=== PATIENT | male | born 1965 | race Caucasian/White ===

== ENCOUNTER → 2017-02-22 | Outpatient (CLI) | payer BC ==
[~2017-02-22] MED LIST: ASP81CT PO; ATOR10TA66 PO; CATHETER FLUSH 10 ML SYR IV PRN; FENO48TA16 PO; Famotidine PO; Isosorbide Mononitrate PO; LISI-552 PO; METO-272 PO; NAPR-689 PO; NITR0.4T SL; OMG1KC PO; Omega 3 Polyunsat Fatty Acids PO; PRAS10TA6 PO; PRAV10TA PO; Prasugrel Hydrochloride PO; ROSU10TA12 PO; TICA90TA PO
[2017-02-22 09:12] VITALS: BP 120/89
[2017-02-22 09:24] VITALS: BP 172/100
--- NOTE | 2017-02-22 22:16 | STRESS TEST ---
DATE OF SERVICE: 02/22/2017 EXERCISE MYOVIEW STRESS TEST REPORT Baseline heart rate is 59. Baseline blood pressure 136/88. Baseline EKG is sinus rhythm with no ischemic changes. In summary, the patient started exercising with a baseline heart rate, blood pressure and EKG mentioned above. At minute 7 and 30 seconds, the patient was injected with 30.7 mCi of technetium-99 Myoview. The patient was able to finish a total of 8 minutes 13 seconds on standard Alfredo protocol with peak exercise level EKG was showing nondiagnostic changes. Blood pressure at peak was 172/109. During recovery, heart rate and blood pressure returned to baseline. EKG returned to baseline. The resting and stress images were reviewed and compared in the short axis, horizontal long axis, and vertical long axis views. Review of the images showed diaphragmatic attenuation with decreased uptake involving the whole inferior wall with mild reversibility. SSS is 6. SDS 6. TID value 0.76. On the gated images, the left ventricle appeared to be normal size with normal contractility. Calculated ejection fraction 66%. CONCLUSION: 1. Fair exercise tolerance. A total of 8 minutes 13 seconds on standard Alfredo protocol, total of 9.9 METS achieving 89% of maximum expected heart rate. 2. Mild hypertensive response to exercise, returned to baseline during recovery. 3. Minimal nondiagnostic EKG changes with exercise, returned to baseline during recovery. 4. Diaphragmatic attenuation with mild reversible ischemia involving the whole inferior wall and inferolateral wall. 5. Normal left ventricular size with normal contractility. Calculated ejection fraction 66%. Job ID: [id number] DocumentID: [id number] Dictated Date: 02/22/2017 16:01:59 Hotel Breakfast Attendant Date: 02/22/2017 20:13:31 Dictated By: GERMÁN REYNOSO MD
== END ==
LOC: CARD 07:12
PROVIDERS: ATTEND Internal Medicine Cardiovascular Disease
DX: R94.31 Abnormal electrocardiogram [ECG] [EKG] (principal); I25.10 Atherosclerotic heart disease of native coronary artery without angina pectoris; R07.9 Chest pain, unspecified; I10 Essential (primary) hypertension; E78.2 Mixed hyperlipidemia; Z72.0 Tobacco use
CPT/HCPCS: 78452; 93017

== ENCOUNTER 2017-03-01 08:57 | Day surgery (SDC) | payer BC ==
[2017-03-01] VITALS (12 sets, daily range): BP systolic 117–157; BP diastolic 63–106
[~2017-03-01] VITALS: Ht 180.3 cm; Wt 108.9 kg
[~2017-03-01 08:57] MED LIST changes: -CATHETER FLUSH 10 ML SYR IV PRN
[2017-03-01] MEDS ORDERED: HEParin (CATH LAB) 2,000 ML IV ONE (09:04)
[2017-03-01] MEDS ORDERED: LIDOCAINE 1% INJ 50 ML (XYLOCAINE) VIAL ONE (09:04)
[2017-03-01] MEDS ORDERED: NS IV 1000 ML 1,000 ML ONE (09:04)
[2017-03-01 09:36] LABS: MEAN PLATELET VOLUME 10.7 FL (7.4-10.4); RED BLOOD COUNT 4.49 10^6/uL (4.35-5.85); RED CELL DISTRIBUTION WIDTH 12.5 % (10.0-14.5); WHITE BLOOD COUNT 6.8 10^3/uL (4.3-11.0)
[2017-03-01] MEDS ORDERED: ISOS30TA3 PO (09:40)
[2017-03-01] MEDS ORDERED: ATOR10TA PO (09:40)
[2017-03-01] MEDS ORDERED: NITR0.4T39 SL (09:40)
[2017-03-01] MEDS ORDERED: METO-370 PO (09:40)
[2017-03-01] MEDS ORDERED: TICA90TA PO (09:40)
[2017-03-01] MEDS ORDERED: ASPI-983 PO (09:40)
[2017-03-01] MEDS ORDERED: NICO2LOZ BC (09:40)
[2017-03-01 09:45] LABS: PROTHROMBIN TIME PATIENT 13.4 SEC (12.2-14.7)
--- NOTE | 2017-03-01 09:51 | Cardiac Procedure Note-CS/ASA ---
Pre-Procedure Note Pre-Op Procedure Note H&P Reviewed The H&P was reviewed, patient examined and no changes noted. Date H&P Reviewed: Mar 01, 2017 Time H&P Reviewed: 09:50 Conscious Sedation Pre-Proced Time Reviewed: 09:50 ASA Class: 3 Airway Mallampati Classification: ([place] appropriate class) I. II. III, IV Lungs Heart ASA score ASA 1: a normal healthy patient ASA 2: a patient with a mild systemic disease (mid diabetes, controlled hypertension, obesity x ASA 3: a patient with a severe systemic disease that limits activity (angina , COPD, prior Myocardial infarction) ASA 4: a patient with an incapacitating disease that is a constant threat to life (CHF, renal failure) ASA 5: a moribund patient not expected to survive 24 hrs. (ruptured aneurysm) ASA 6: a declared brain patient whose organs are being harvested. For emergent operations, add the letter E after the classification Grade 3 Sedation Plan: Analgesia, Amnesia, Plan communicated to team members, Discussed options with patient/fam, Discussed risks with patient/fam Note The patient is an appropriate candidate to undergo the planned procedure, sedation, and anesthesia. The patient immediately re-assessed prior to indication. GERMÁN REYNOSO MD Mar 01, 2017 09:51
[2017-03-01] MEDS ORDERED: ASPI-999 PO (09:55)
[2017-03-01] MEDS ORDERED: OMEG1CAP PO (09:55)
[2017-03-01 09:57] LABS: ALBUMIN 4.3 GM/DL (3.2-4.5); BILIRUBIN,TOTAL 0.9 MG/DL (0.1-1.0); CALCIUM 9.7 MG/DL (8.5-10.1); CREATININE SERUM 1.63 MG/DL (0.60-1.30); POTASSIUM 4.2 MMOL/L (3.6-5.0)
--- NOTE | 2017-03-01 10:10 | Diagnostic Imaging Report ---
INDICATION: Coronary artery disease PA chest obtained at 953 hours a.m. and compared with 01/25/2016. Heart and mediastinal silhouette are normal in appearance. The lungs are clear. There is no pneumothorax or pleural fluid. IMPRESSION: Negative chest. Dictated by: Dictated on workstation # [id number]
[2017-03-01] MEDS ORDERED: NS IV 1000 ML 1,000 ML IV ONE (10:15)
[2017-03-01] MEDS ORDERED: fentaNYL INJECTION 100 MCG/2 ML AMP ONE (10:23)
[2017-03-01] MEDS ORDERED: MIDAZOLAM 2 MG/2 ML (VERSED) VIAL ONE (10:23)
[2017-03-01] MEDS ORDERED: INFLUENZA TRIvalent 2017-2018 0.5 ML/45 MCG SYR IM ONE (10:30)
[2017-03-01] MEDS ORDERED: NS IV 1000 ML 1,000 ML IV SCH (11:01)
--- NOTE | 2017-03-01 11:03 | Discharge Inst-Post CATH ---
Discharge Inst-CATH Post Cardiac Cath D/C Inst Follow Up/Plan Appointment with Dr. Novak's office in 2-4 weeks CARDIAC CATH DISCHARGE INSTRUCTIONS *Hold Metformin for 48 hours post heart cath. ACTIVITY * Go Home directly and rest. * Limit activity of the leg (or wrist if it was used) for 7 days including aerobics, swimming, jogging, bicycling, etc. * Restrict stair-climbing for 7 days if possible, if not, climb up with your non -cath leg, then bring together on the same step. * Avoid lifting, pushing, pulling or excessive movement of the affected extremity for 7 days. * Customary sexual activity may be resumed after 2 days-use caution not to use a position that strains or causes pain to the affected extremity. * No driving for 24 hours. * NO SMOKING. * Avoid straining for bowel movements for 7 days. * Gentle walking on level ground is allowed. * Returning to work will depend on the type of procedure and the results. Your doctor will discuss this with you. CALL YOUR DOCTOR FOR ANY OF THE FOLLOWING: *If bleeding from the puncture site occurs- Apply gentle pressure to site with clean cloth and call your doctor or EMS. * If a knot or lump forms under the skin, increases in size, or causes pain. * If bruising appears to be worsening or moving further down your leg instead of disappearing. * Temperature above 101 F. CARE OF YOUR GROIN INCISION; * Bruising or purple discoloration of the skin near the puncture site is common. * You may shower only, no bathtub bathing for 5 days. Be careful to avoid slipping as your leg may feel stiff. * If a closure device was used on your femoral artery, please see the attached guide regarding care of the device and your leg. * REMOVE the dressing from your groin the next day after your procedure in the shower. CARE OF YOUR WRIST INCISION; * Bruising or purple discoloration of the skin near the puncture site is common. * You may shower. * DO NOT submerge wrist. * Remove dressing in 24 hours. GERMÁN NOVAK MD Mar 01, 2017 11:03
--- NOTE | 2017-03-01 11:08 | Cardiac Cath Report ---
Cardiac Cath Report Physician (s)/Barrel Waterer (s) Physician GERMÁN REYNOSO MD Pre-Procedure Diagnosis Pre-Procedure Diagnosis: coronary artery disease Post-Procedure Note Procedure Start Date: Mar 01, 2017 Name of Procedure: left heart catheterization, [id number] Findings/Procedure Note PROCEDURE NOTE: After explaining the procedure to the patient, all pros and cons were explained, all questions were answered. The patient signed the consent and then she was placed on the cardiac catheterization laboratory. The patient was placed on the cardiac catheterization laboratory. Groin was prepped SL fashion local anesthesia was used. Sheath placed in the right femoral artery. Cinda right and left catheter were used to access the coronary system. Pigtail was used to access the left ventricular cavity. Left ventriculogram was not done, pressure was measured Aortic arch angiogram was not done At the end of the procedure the sheath was removed. Closure device was not used, manual pressure applied FINDINGS: Hemodynamics LV 137/17, end-diastolic pressure of 17 Aorta 144/88 mean of 111 ANATOMY: Left Main is free of obstructive disease Left Anterior Descending has patent stent in the proximal and midportion, distally there is a 50 percent stenosis that has been present, did not change compared to the study of 2015 Left Circumflex has a patent stent proximally with mild disease distally Right Coronory Artery is dominant artery with aneurysmal dilated patient distally prior to the bifurcation and small vessel disease distally with slow flow LV Gram was not done, pressure was measured CONCLUSION: 1. Patent stent in the proximal and mid LAD, 50 percent stenosis in the distal LAD that has been present previously, did not change compared to the study of 2015 2. Patent stent in the proximal circumflex artery was small vessel disease distally 3. 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 Normal left ventricular end-diastolic pressure DISCUSSION AND RECOMMENDATION: Medical therapy is recommended no intervention is warranted Anesthesia Type: Conscious Sedation Estimated blood loss (mL): 10 ml Contrast Amount: 17 ml Total Radiation Dose: 332 mGy Post-Procedure Diagnosis Post-operative diagnosis: Coronary artery disease Hypertension Hyperlipidemia Chest pain nonspecific etiology GERMÁN REYNOSO MD Mar 01, 2017 11:07
[2017-03-01] MEDS ORDERED: PATIENT MAY USE OWN MEDS, ALL PO SCH (11:15)
== END 2017-03-01 16:20 | disposition home or self-care (01) ==
LOC: CATH 08:57 → ICU 11:30 → CATH 16:20
PROVIDERS: ATTEND Internal Medicine Cardiovascular Disease
DX: I25.10 Atherosclerotic heart disease of native coronary artery without angina pectoris (principal); I10 Essential (primary) hypertension; E78.2 Mixed hyperlipidemia; R07.89 Other chest pain; R94.39 Abnormal result of other cardiovascular function study; F17.210 Nicotine dependence, cigarettes, uncomplicated; I25.2 Old myocardial infarction; E66.9 Obesity, unspecified; Z68.33 Body mass index [BMI] 33.0-33.9, adult; Z82.49 Family history of ischemic heart disease and other diseases of the circulatory system; Z79.899 Other long term (current) drug therapy; Z95.5 Presence of coronary angioplasty implant and graft
CPT/HCPCS: 36415; 71010; 80053; 80061; 85027; 85610; 85730; 87081; 93458

== ENCOUNTER 2022-07-16 05:49 | Observation (INO) | payer BC ==
[~2022-07-16] VITALS: Ht 180.3 cm; Wt 106.5 kg
[2022-07-16] VITALS (12 sets, daily range): BP systolic 115–131; BP diastolic 70–86
[~2022-07-16 05:49] MED LIST changes: +ASPI-1238 PO; +ASPI-999 PO; +ATOR10TA PO; +ISOS30TA82 PO; -LISI-552 PO; +LISI20TA26 PO; +METO50TA7 PO; +NF-LOVAZAC PO; +NICO2LOZ BC; +NITR0.4T39 SL
--- NOTE | 2022-07-16 06:10 | ED Chest Pain ---
General Stated Complaint: LEFT ARM PAIN Source: patient Exam Limitations: no limitations History of Present Illness Date Seen by Provider: Jul 16, 2022 Time Seen by Provider: 06:04 Initial Comments Patient is a 56-year-old male who presents to the emergency department this morning with a chief complaint of substernal chest "pressure". He states it woke him from sleep at approximately 430 this morning. It radiated into his left posterior shoulder and into his left upper arm/bicep. He denies any associated symptoms of nausea, shortness of breath or diaphoresis. He took 1 sublingual nitro and 2 full-strength aspirin. He woke his up at approximately 530 and they decided to come to the emergency department for evaluation. Patient's last stent was placed approximately 7 years ago. He is only on daily baby aspirin, no Plavix. He takes medication for hypertension and cholesterol. He is not a diabetic. He quit smoking at the beginning of June. He does not do stress test because he states he always passes them and subsequently needs a stent. He currently rates his pain in his left shoulder and bicep area as a "2". His vital signs are stable, heart rate in the 60s, blood pressure systolic 116. He denies any recent illness. He has not had any significant exertional activity in the last 48 hours. No sick contacts. Continues to deny any associated symptoms. Tells me that he has a history of approximately 7-[address] Novak is his manager clinical research. He has also had some stents placed in [place]. Timing/Duration: 1-3 hours Severity/Quality: severe ("9"), pressure Location: central Radiation: shoulders (left posterior shoulder and bicep) Activities at Onset: sleep Prior CP/Workup: cardiac cath, heart attack Modifying Factors: improves with nitroglycerin (plus aspirin) ASA po SIDEHAND: Yes NTG SL SIDEHAND: Yes Associated Symptoms: denies symptoms Allergies and Home Medications Allergies Coded Allergies: No Known Drug Allergies (Unverified , 01/24/14) Patient Home Medication List Home Medication List Reviewed: Yes Aspirin (Aspirin) 81 Mg Tab.chew, 81 MG PO DAILY, (Reported) Entered as Reported by: CHARLIE MCKEON on 03/01/17 0955 Atorvastatin Calcium (Lipitor) 10 Mg Tablet, 10 MG PO DAILY, (Reported) Entered as Reported by: CHARLIE MCKEON on 03/01/17 0940 Fenofibrate (Tricor) 48 Mg Tab, 48 MG PO DAILY, (Reported) Entered as Reported by: MUSA JANG on 01/25/16 0759 Isosorbide Mononitrate (Isosorbide Mononitrate ER) 30 Mg Tab.er.24h, 30 MG PO DAILY, (Reported) Entered as Reported by: CHARLIE MCKEON on 03/01/17 09 Lisinopril (Lisinopril) 20 Mg Tablet, 20 MG PO DAILY, (Reported) Entered as Reported by: JEFFRY ABEL on 03/10/15 1015 Metoprolol Succinate (Metoprolol Succinate) 50 Mg Tab.er.24h, 50 MG PO DAILY, (Reported) Entered as Reported by: CHARLIE MCKEON on 03/01/17 09 Nicotine Polacrilex (Nicorette) 2 Mg Lozenge, 2 MG BC Q2H PRN for SMOKING CESATION, (Reported) Entered as Reported by: CHARLIE MCKEON on 03/01/17 0940 Nitroglycerin (Nitroglycerin) 0.4 Mg Tab.subl, 0.4 MG SL UD PRN for CHEST PAIN, (Reported) Entered as Reported by: CHARLIE MCKEON on 03/01/17 09 Cornell-3 Acid Ethyl Esters (Lovaza) 1 Gm Capsule, 1 GM PO DAILY, (Reported) Entered as Reported by: CHARLIE MCKEON on 03/01/17 0955 Review of Systems Review of Systems Constitutional: see HPI EENTM: No Symptoms Reported Respiratory: No Symptoms Reported Cardiovascular: Chest Pain ("pressure") Gastrointestinal: No Symptoms Reported Genitourinary: No Symptoms Reported Musculoskeletal: joint pain (left shoulder and bicep pain) Skin: no symptoms reported All Other Systems Reviewed Negative Unless Noted: Yes Past [id number]-[id number]-[id number] Hx Past Medical History Coronary Stent Sleep Apnea Physical Exam Vital Signs Vital Signs - First Documented 07/16/22 05:57 Temp 36.4 Pulse 63 Resp 18 B/P (MAP) 116/84 (95) Capillary Refill : Height, Weight, BMI Height: 5'11.00" Weight: 240lbs. 0.0oz. 108.773103yg; 33.5 BMI Method: General Appearance: No Apparent Distress, WD/WN HEENT: PERRL/EOMI Neck: Normal Inspection Respiratory: Lungs Clear, Normal Breath Sounds, No Accessory Muscle Use, No Respiratory Distress Cardiovascular: Regular Rate, Rhythm, Normal Peripheral Pulses (2+ radial bilaterally) Gastrointestinal: Non Tender, Soft Extremity: Normal Inspection, Normal Range of Motion, No Pedal Edema Neurologic/Psychiatric: Alert, Oriented x3, No Motor/Sensory Deficits, Normal Mood/Affect Skin: Normal Color, Warm/Dry Progress/Results/Core Measures Results/Orders Lab Results Laboratory Tests Test 07/16/22 06:04 Range/Units White Blood Count 8.4 4.3-11.0 10^3/uL Red Blood Count 4.93 4.30-5.52 10^6/uL Hemoglobin 15.8 13.3-17.7 g/dL Hematocrit 46 40-54 % Mean Corpuscular Volume 93 80-99 fL Mean Corpuscular Hemoglobin 32 25-34 pg Mean Corpuscular Hemoglobin Concent 35 32-36 g/dL Red Cell Distribution Width 12.2 10.0-14.5 % Platelet Count 231 130-400 10^3/uL Mean Platelet Volume 10.7 9.0-12.2 fL Immature Granulocyte % (Auto) 0 % Neutrophils (%) (Auto) 59 42-75 % Lymphocytes (%) (Auto) 24 12-44 % Monocytes (%) (Auto) 9 0-12 % Eosinophils (%) (Auto) 7 0-10 % Basophils (%) (Auto) 1 0-10 % Neutrophils # (Auto) 5.0 1.8-7.8 10^3/uL Lymphocytes # (Auto) 2.0 1.0-4.0 10^3/uL Monocytes # (Auto) 0.8 0.0-1.0 10^3/uL Eosinophils # (Auto) 0.6 H 0.0-0.3 10^3/uL Basophils # (Auto) 0.1 0.0-0.1 10^3/uL Immature Granulocyte # (Auto) 0.0 0.0-0.1 10^3/uL Prothrombin Time 13.2 12.2-14.7 SEC INR Comment 1.0 0.8-1.4 Activated Partial Thromboplast Time 29 24-35 SEC Sodium Level 140 135-145 MMOL/L Potassium Level 4.2 3.6-5.0 MMOL/L Chloride Level 106 98-107 MMOL/L Carbon Dioxide Level 24 21-32 MMOL/L Anion Gap 10 5-14 MMOL/L Blood Urea Nitrogen 20 H 7-18 MG/DL Creatinine 1.59 H 0.60-1.30 MG/DL Estimat Glomerular Filtration Rate 50 BUN/Creatinine Ratio 13 Glucose Level 135 H 70-105 MG/DL Calcium Level 9.9 8.5-10.1 MG/DL Corrected Calcium 9.6 8.5-10.1 MG/DL Magnesium Level 2.2 1.6-2.4 MG/DL Total Bilirubin 0.9 0.1-1.0 MG/DL Aspartate Amino Transf (AST/SGOT) 14 5-34 U/L Alanine Aminotransferase (ALT/SGPT) 19 0-55 U/L Alkaline Phosphatase 81 40-136 U/L Troponin I < 0.028 <0.028 NG/ML Total Protein 7.2 6.4-8.2 GM/DL Albumin 4.4 3.2-4.5 GM/DL My Orders Orders - JUAN JOSE LY MD Cbc With Automated Diff (07/16/22 06:04) Magnesium (07/16/22 06:04) Chest 1 View, Ap/Pa Only (07/16/22 06:04) Comprehensive Metabolic Panel (07/16/22 06:04) Protime With Inr (07/16/22 06:04) Partial Thromboplastin Time (07/16/22 06:04) O2 (07/16/22 06:04) Monitor-Rhythm Ecg Trace Only (07/16/22 06:04) Lipid Panel (07/17/22 06:00) Ed Iv/Invasive Line Start (07/16/22 06:04) Troponin I Tree (07/16/22 06:04) Ekg Tracing (07/16/22 06:49) Nitroglycerin 0.4 Mg Btl 25's (Nitrostat (07/16/22 06:49) Code/Resuscitation (07/16/22 07:06) Heparin (Bolus Per Protocol) (Heparin (B (07/16/22 07:15) Heparin Drip 95961 Unit/500ml (Heparin (07/16/22 07:15) Medications Given in ED Current Medications Medications Dose Ordered Sig/Viviana Route Start Time Stop Time Status Last Admin Dose Admin Nitroglycerin 0.4 mg STK-MED ONCE SL 4/22/23 06:49 07/16/22 06:51 DC 07/16/22 06:53 0.4 MG Vital Signs/I&O 07/16/22 05:57 Temp 36.4 Pulse 63 Resp 18 B/P (MAP) 116/84 (95) Progress Progress Note #1: Time: 06:53 Progress Note notified by Maryan. RN patient's pain recurring at this time. repeat EKG obtained. No change. Patient's BP noted to increase with pain from systolic 116 to 141 systolic. SL ntg given. Progress Note #2: Time: 06:59 Progress Note Patient seen and evaluated by me. Evaluation today includes history and physical, EKG x2, single view chest x-ray, CBC, Chem-12, troponin, magnesium, coags. Patient's physical exam pertinent for well-developed well-nourished slightly obese male in no acute distress. Vital signs are stable heart rate in the 60s blood pressure 116 systolic. Heart is regular, lungs are clear. No reproducible chest wall tenderness. Abdomen is soft. No lower extremity edema. No focal neurologic deficits. Differential diagnosis based on history and physical exam, stable angina versus unstable angina. Labs independently reviewed by me, CBC is normal, chemistry is remarkable for increased BUN and creatinine at 20 and 1.59. Glucose at 135. Troponin negative, magnesium within normal range. Coags normal. EKG x2 shows normal sinus rhythm in the 60s. Nonspecific ST segment change in the inferior leads. Second EKG shows one ectopic ventricular beat otherwise normal. Chest x-ray independently reviewed by me, no evidence of infiltrate, effusion, normal mediastinal structures. Patient had nitro and 2 full-strength aspirin prior to arrival. Monitored in the emergency department until at approximately 0 650 he started experiencing some increasing intensity in his chest pain. Second EKG was obtained at that time. No significant change. 1 sublingual nitro was administered. Case was discussed with Dr. Myers, cardiology on-call. Will admit observation to the cardiac stepdown floor. Attempt to get an echo today. Patient will be kept NPO. Anticipate speaking with Dr. Huizar on-call for the hospitalist service for admission. Progress Note #3: Time: 07:17 Progress Note Discussed with . She states nearly every time he has come in to have a heart cath he has had his first "double stents" that he had placed initially "cleaned out". She did tell me that he had pain similar to this about a week ago but declined to come to the hospital or call Dr. Novak's office and became concerned this morning that the pain was so intense and had recurred so soon a fter last week. He is re-evaluated. Ntg helped. BP back down to 116 systolic. resting comfortably. Initial ECG Impression Date: Jul 16, 2022 Initial ECG Impression Time: 06:05 Initial ECG Rate: 62 Initial ECG Rhythm: Normal Sinus Initial ECG Intervals TN 224 QRS [address] QTc [address] change inferior leads, lead I; no elevation. No ectopy; first degree AV block with prolonged TN EKG : EKG Time: 06:49 Rate: 61 Rhythm: Normal Sinus Intervals TN 218 QRS 105 QTc 394 ECG Comparisson: Unchanged Comment No STEMI Diagnostic Imaging Diagonstic Imaging: Xray Plain Films/CT/US/NM/MRI: chest Comments independent interpretation of CXR by me - normal mediastinal structures; no effusion or infiltrate Reviewed: Reviewed by Me Departure Communication (Admissions) Time/Spoke to Admitting Phy: 07:[address] Huizar, Hospitalist documentation analyst Time/Spoke to Consulting Phy: 06:[address] Myers; keep NPO; see if we can get an echo this morning Impression Primary Impression: Unstable angina Additional Impression: History of CAD (coronary artery disease) Disposition: ADMITTED INPATIENT Condition: Stable Admissions Decision to Admit Reason: Admit from ER (General) Decision to Admit/Date: Jul 16, 2022 Time/Decision to Admit Time: 06:58 Departure-Patient Inst. Referrals: BRANDI PORTILLO MD (PCP/Family) Primary Care Physician Copy Copies To 1: BRANDI PORTILLO MD Copies To 2: GERMÁN NOVAK MD, KATHRYN M MD Jul 16, 2022 06:10
[2022-07-16 06:12] LABS: BASOPHILS # (AUTO) 0.1 10^3/uL (0.0-0.1); BASOPHILS % (AUTO) 1 % (0-10); EOSINOPHILS # (AUTO) 0.6 10^3/uL (0.0-0.3); EOSINOPHILS % (AUTO) 7 % (0-10); HEMATOCRIT 46 % (40-54); HEMOGLOBIN 15.8 g/dL (13.3-17.7); LYMPHOCYTES % (AUTO) 24 % (12-44); MEAN CORPUSCULAR HEMOGLOBIN 32 pg (25-34); MEAN CORPUSCULAR HGB CONC 35 g/dL (32-36); MEAN CORPUSCULAR VOLUME 93 fL (80-99); MEAN PLATELET VOLUME 10.7 fL (9.0-12.2); MONOCYTES # (AUTO) 0.8 10^3/uL (0.0-1.0); MONOCYTES % (AUTO) 9 % (0-12); NEUTROPHILS % (AUTO) 59 % (42-75); PLATELET COUNT 231 10^3/uL (130-400); WHITE BLOOD COUNT 8.4 10^3/uL (4.3-11.0)
[2022-07-16 06:20] LABS: ALBUMIN 4.4 GM/DL (3.2-4.5)
[2022-07-16 06:21] LABS: POTASSIUM 4.2 MMOL/L (3.6-5.0)
[2022-07-16 06:22] LABS: CALCIUM 9.9 MG/DL (8.5-10.1); PROTHROMBIN TIME PATIENT 13.2 SEC (12.2-14.7)
[2022-07-16 06:23] LABS: TOTAL PROTEIN 7.2 GM/DL (6.4-8.2)
[2022-07-16 06:25] LABS: BILIRUBIN,TOTAL 0.9 MG/DL (0.1-1.0)
[2022-07-16 06:27] LABS: CREATININE SERUM 1.59 MG/DL (0.60-1.30)
--- NOTE | 2022-07-16 06:29 | Diagnostic Imaging Report ---
CHEST 1 VIEW, AP/PA ONLY INDICATION: Chest pain. COMPARISON: Chest radiograph on 03/01/2017. FINDINGS: Lungs: Normal lung volume. No focal consolidation. Stable pulmonary vasculature. Pleura: No pleural effusion or pneumothorax. Heart and Mediastinum: Cardiomediastinal silhouette and great vessels of the thorax are stable. Osseous Structures and Soft Tissues: No acute osseous abnormality. Normal soft tissues. IMPRESSION: No acute cardiopulmonary process. Dictated by: Dictated on workstation # [id number]
[2022-07-16 06:30] LABS: MAGNESIUM 2.2 MG/DL (1.6-2.4)
[2022-07-16] MEDS ORDERED: NITROGLYCERIN 0.4 MG SL TABS BTL 25'S SL ONE (06:49)
[2022-07-16] MEDS ORDERED: HEParin DRIP 25000 UNIT/500ML 500 ML IV ONE (07:15)
[2022-07-16] MEDS ORDERED: HEParin 1000 UNIT/ML (10ML VIAL) FOR BOLUS IV SCH (07:15)
[2022-07-16] MEDS ORDERED: NITROGLYCERIN 0.4 MG SL TABS BTL 25'S SL PRN ×2 (08:15→09:30)
[2022-07-16] MEDS ORDERED: HEParin DRIP 25000 UNIT/500ML 500 ML IV SCH (09:15)
[2022-07-16] MEDS ORDERED: NS IV 1000 ML 1,000 ML IV SCH ×2 (09:15→13:45)
[2022-07-16] MEDS ORDERED: HEParin 1000 UNIT/ML (10ML VIAL) FOR BOLUS IV PRN (09:15)
[2022-07-16] MEDS ORDERED: ONDANSETRON 4 MG/2 ML (SDV) Z0FRAN IVP PRN (09:30)
[2022-07-16] MEDS ORDERED: morphine INJ 4 MG/ML 1 ML (VIAL/SYRINGE) IV PRN (09:30)
--- NOTE | 2022-07-16 10:30 | Consultation-Cardiology ---
HPI-Cardiology Cardiology Consultation: Date of Consultation 07/16/22 Date of Admission Attending Physician Alexx Winchester MD Admitting Physician Admitting Physician: Karina Huizar MD Attending Physician: Karina Huizar MD Consulting Physician JOHN ERAZO MD HPI: Time Seen by a Provider: 08:15 Mr. Ortiz is a 56-year-old gentleman with a history of obstructive sleep apnea and CAD status post PCI to the LAD left circumflex and RCA who presents for evaluation of chest discomfort. Patient states that on June 25 he was smoking and began to experience chest discomfort radiating into the back and into the left upper extremity. That was the day he decided to stop smoking given the chest discomfort he experienced. He noted that the chest discomfort was very similar to what he is experienced in the past prior to receiving stents. He had to take nitroglycerin at that time. Since that time, his symptoms resolved but on the night prior to admission he awoke at approximately 4 AM with acute onset chest discomfort radiating to the back and into the shoulder. He denies any associated nausea vomiting or shortness of breath. He took a nitroglycerin tab which brought his symptoms down to a 2 out of 10 after consultation with his he decided to come in for evaluation. Initial troponins are negative. Here EKG demonstrates normal sinus rhythm first-degree AV block incomplete interventricular conduction delay Q waves in the inferior leads with T wave inversions inferiorly as well chest x-ray is negative for any acute intrathoracic process. Cardiology is now consulted to aid in evaluation. Review of Systems-Cardiology Review of Systems Other comments All systems were reviewed and are negative except for what is been described in HPI All Other Systems Reviewed Negative Unless Noted: Yes IVL-Kftggh-Asgsss Hx Patient Social History Smoking Status: Former Smoker Have you traveled recently?: No Alcohol Use?: Yes Pt feels they are or have been: No Tobacco type used: Cigarettes Past Medical History PMH CAD status post PCI to the LAD left circumflex and RCA. He has multiple interventions at this institution in 2013, 2016 and last cardiac cath was in 2017 where no intervention was performed. He does state that he has had multiple interventions outside of these. Allergies and Home Medications Allergies Coded Allergies: No Known Drug Allergies (Unverified , 01/24/14) Patient Home Medication List Home Medication List Reviewed: Yes Aspirin (Aspirin) 81 Mg Tab.chew, 81 MG PO DAILY, (Reported) Entered as Reported by: CHARLIE MCKEON on 03/01/17 09 Atorvastatin Calcium (Lipitor) 10 Mg Tablet, 10 MG PO DAILY, (Reported) Entered as Reported by: CHARLIE MCKEON on 03/01/17939 Fenofibrate (Tricor) 48 Mg Tab, 48 MG PO DAILY, (Reported) Entered as Reported by: MUSA JANG on 01/25/16 0759 Isosorbide Mononitrate (Isosorbide Mononitrate ER) 30 Mg Tab.er.24h, 30 MG PO DAILY, (Reported) Entered as Reported by: CHARLIE MCKEON on 03/01/17 09 Lisinopril (Lisinopril) 20 Mg Tablet, 20 MG PO DAILY, (Reported) Entered as Reported by: JEFFRY ABEL on 03/10/15 1015 Metoprolol Succinate (Metoprolol Succinate) 50 Mg Tab.er.24h, 50 MG PO DAILY, (Reported) Entered as Reported by: CHARLIE MCKEON on 03/01/17939 Nicotine Polacrilex (Nicorette) 2 Mg Lozenge, 2 MG BC Q2H PRN for SMOKING CESATION, (Reported) Entered as Reported by: CHARLIE MCKEON on 03/01/17939 Nitroglycerin (Nitroglycerin) 0.4 Mg Tab.subl, 0.4 MG SL UD PRN for CHEST PAIN, (Reported) Entered as Reported by: CHARLIE MCKEON on 03/01/17939 [place]-3 Acid Ethyl Esters (Lovaza) 1 Gm Capsule, 1 GM PO DAILY, (Reported) Entered as Reported by: CHARLIE MCKEON on 03/01/17954 Exam Vital Signs Vital Signs Date Time Temp Pulse Resp B/P (MAP) Pulse Ox O2 Delivery O2 Flow Rate FiO2 07/16/22 10:07 36.4 58 97 07/16/22 10:00 Room Air 07/16/22 08:02 20 117/70 Physical Exam Gen: No acute distress; A+O x 3, sitting comfortably in the bed Neck: soft supple, no cervical LAD Lungs: distant lung sounds, diminished air movement bilaterally; no jesika wheezing, rales or rhonchi CV: distant heart sounds, nl s1/s2, no m-g-r appreicated, RRR Abd: soft nt nd, no HSM, + BS Ext: wwp, no c-c-e; 2+ DP and femoral pulses skin: no lesions rashes or ecchymoses are noted. Labs Laboratory Tests Test 07/16/22 06:04 Range/Units White Blood Count 8.4 4.3-11.0 10^3/uL Red Blood Count 4.93 4.30-5.52 10^6/uL Hemoglobin 15.8 13.3-17.7 g/dL Hematocrit 46 40-54 % Mean Corpuscular Volume 93 80-99 fL Mean Corpuscular Hemoglobin 32 25-34 pg Mean Corpuscular Hemoglobin Concent 35 32-36 g/dL Red Cell Distribution Width 12.2 10.0-14.5 % Platelet Count 231 130-400 10^3/uL Mean Platelet Volume 10.7 9.0-12.2 fL Immature Granulocyte % (Auto) 0 % Neutrophils (%) (Auto) 59 42-75 % Lymphocytes (%) (Auto) 24 12-44 % Monocytes (%) (Auto) 9 0-12 % Eosinophils (%) (Auto) 7 0-10 % Basophils (%) (Auto) 1 0-10 % Neutrophils # (Auto) 5.0 1.8-7.8 10^3/uL Lymphocytes # (Auto) 2.0 1.0-4.0 10^3/uL Monocytes # (Auto) 0.8 0.0-1.0 10^3/uL Eosinophils # (Auto) 0.6 H 0.0-0.3 10^3/uL Basophils # (Auto) 0.1 0.0-0.1 10^3/uL Immature Granulocyte # (Auto) 0.0 0.0-0.1 10^3/uL Prothrombin Time 13.2 12.2-14.7 SEC INR Comment 1.0 0.8-1.4 Activated Partial Thromboplast Time 29 24-35 SEC Sodium Level 140 135-145 MMOL/L Potassium Level 4.2 3.6-5.0 MMOL/L Chloride Level 106 98-107 MMOL/L Carbon Dioxide Level 24 21-32 MMOL/L Anion Gap 10 5-14 MMOL/L Blood Urea Nitrogen 20 H 7-18 MG/DL Creatinine 1.59 H 0.60-1.30 MG/DL Estimat Glomerular Filtration Rate 50 BUN/Creatinine Ratio 13 Glucose Level 135 H 70-105 MG/DL Calcium Level 9.9 8.5-10.1 MG/DL Corrected Calcium 9.6 8.5-10.1 MG/DL Magnesium Level 2.2 1.6-2.4 MG/DL Total Bilirubin 0.9 0.1-1.0 MG/DL Aspartate Amino Transf (AST/SGOT) 14 5-34 U/L Alanine Aminotransferase (ALT/SGPT) 19 0-55 U/L Alkaline Phosphatase 81 40-136 U/L Troponin I < 0.028 <0.028 NG/ML Total Protein 7.2 6.4-8.2 GM/DL Albumin 4.4 3.2-4.5 GM/DL ECG Impression ECG Comment EKG demonstrates normal sinus rhythm, inferior Q waves, and nonspecific T wave changes in the inferior leads A/P-Cardiology Plan Mr. Ortiz is a 56-year-old gentleman with a history of obstructive sleep apnea and CAD status post PCI to the LAD left circumflex and RCA who presents for evaluation of chest discomfort, consistent with unstable angina. ## Unstable angina: Patient's pain currently is at a 0 out of 10. He is on a heparin drip. He received a total of 2 nitroglycerin in the emergency room. EKG with no acute changes. -N.p.o. -Heparin -We will take him for cardiac cath to assess his coronary vasculature. -Continue aspirin, statin, Tricor, lisinopril, Imdur, Toprol XL. ##Risk factor modification: -Check A1c and fasting lipid panel Pre-procedure documentation: - Mallampati score: 3 - ASA: 3 JOHN ERAZO MD Jul 16, 2022 10:30
--- NOTE | 2022-07-16 11:18 | History & Physical-Hospitalist ---
History of Present Illness HPI/Chief Complaint Patient is a 56-year-old male with past medical history of coronary artery disease, tobacco abuse, hypertension who presented to the emergency department due to chest pain. He states the pain woke him from sleep it was in the center of his chest and radiated to his left shoulder. He denies any nausea, shortness of breath, diaphoresis, radiation to his jaw. He states it was not exactly like his previous episodes when he has needed stents as that pain was more in his back and this is more central in his chest. Regardless he took a nitro and aspirin at home and his symptoms improved. Because of his hi story he decided to seek evaluation in the emergency department. His troponin was negative and his EKG was not indicative of acute ischemia. Decision was made to admit for unstable angina given his symptomatology and to proceed with cardiac cath today. He reports feeling ok now but would like to drink something as his mouth is dry. Source: patient, family Date Seen 07/16/22 Time Seen by a Provider: 09:45 Attending Physician Alexx Winchester MD PCP Admitting Physician: Estefany Huizar MD Attending Physician: Estefany Huizar MD Referring Physician Date of Admission Jul 16, 2022 at 8:26 am Home Medications & Allergies Home Medications Reviewed patient Home Medication Reconciliation performed by pharmacy medication reconciliations farm equipment service technician and/or nursing. Patients Allergies have been reviewed. Allergies Allergies Coded Allergies No Known Drug Allergies (Virmevbpjj91/31/14) Past Awropiz-Xzbiyn-Svmtrr Hx Patient Social History Marrital Status: Tobacco Use?: Yes Tobacco type used: Cigarettes Smoking Status: Former Smoker Smokeless Tobacco Frequency: Current Everyday User, Former User Use of E-Cig and/or Vaping dev: No Substance use?: No Alcohol Use?: Yes Alcohol type: Beer Alcohol Frequency: Couple times a week Pt feels they are or have been: No Immunizations Up To Date Tetanus Booster (TDap): Less Than 5 Years Current Status Advance Directives: No Communicates: Verbally Primary Language: Citizen Of [place] Preferred Spoken Language: Citizen Of [place] Is interpretation needed?: No Implanted or Applied Medical D: None Past Medical History Surgeries: Coronary Stent Sleep Apnea Coronary Artery Disease, Hypertension Family Medical History Reviewed Nursing Family Hx Review of Systems Constitutional: see HPI Physical Exam Physical Exam Vital Signs Vital Signs - First Documented 07/16/22 07/16/22 07/16/22 05:57 08:02 09:00 Temp 36.4 Pulse 63 Resp 18 B/P (MAP) 116/84 (95) Pulse Ox 97 O2 Delivery Room Air Capillary Refill : Less Than 3 Seconds Height, Weight, BMI Height: 5'11.00" Weight: 240lbs. 0.0oz. 108.691527px; 32.76 BMI Method: General Appearance: No Apparent Distress, WD/WN Respiratory: Lungs Clear, No Respiratory Distress Cardiovascular: Regular Rate, Rhythm, No Murmur Gastrointestinal: Normal Bowel Sounds, Soft Neurologic/Psychiatric: Alert, Oriented x3 Results Results/Procedures Labs Laboratory Tests 07/16/22 06:04 Patient resulted labs reviewed. Imaging: Reviewed Imaging Report Imaging [facility] [place], [place] NAME: JERICA KELLY [facility] REC#: [id number] PT STATUS: REG ER : 1965 PHYSICIAN: JUAN JOSE LY MD ADMIT DATE: 07/16/22/ER Signed Date of Exam:07/16/22 CHEST 1 VIEW, AP/PA ONLY CHEST 1 VIEW, AP/PA ONLY INDICATION: Chest pain. COMPARISON: Chest radiograph on 03/01/2017. FINDINGS: Lungs: Normal lung volume. No focal consolidation. Stable pulmonary vasculature. Pleura: No pleural effusion or pneumothorax. Heart and Mediastinum: Cardiomediastinal silhouette and great vessels of the thorax are stable. Osseous Structures and Soft Tissues: No acute osseous abnormality. Normal soft tissues. IMPRESSION: No acute cardiopulmonary process. Dictated by: Dictated on workstation # [id number] Dict: 07/16/2227 Trans: 07/16/2227 [facility] [place] [id number] Interpreted by: TORRI BRIZUELA DO Electronically signed by: TORRI BRIZUELA DO 07/16/22 0627 Assessment/Plan Admission Diagnosis Unstable Angina Admission Status: Inpatient Order (span 2 midnights) Reason for Inpatient Admission: see below Assessment and Plan Unstable Angina CAD HTN Bradycardia Troponin negative Cardiology consulted, appreciate recs Echo Cath today Heparin gtt Elevated blood sugars Denies history of DM Fasting blood sugar 136 A1c pending DMITRY Creatinine 1.59 trend, IVF given contrast load with cath Tobacco abuse Quit this month, encourage cessation Diagnosis/Problems Diagnosis/Problems (1) Essential (primary) hypertension (2) Hyperglycemia (3) Unstable angina Status: Acute (4) History of CAD (coronary artery disease) Status: Acute Clinical Quality Measures AMI/AHF: ASA po Prior to arrival: Yes ESTEFANY HUIZAR MD Jul 16, 2022 11:18
[2022-07-16] MEDS ORDERED: NS IV 1000 ML 0 ML ONE (12:07)
[2022-07-16] MEDS ORDERED: fentaNYL INJ 100 MCG/2 ML AMP ONE (12:07)
[2022-07-16] MEDS ORDERED: VERAPAMIL 5 MG/2 ML (CALAN) VIAL IV ONE (12:07)
[2022-07-16] MEDS ORDERED: LIDOCAINE 1% INJ 20 ML VIAL ONE (12:07)
[2022-07-16] MEDS ORDERED: MIDAZOLAM 5 MG/5 ML (VERSED) VIAL ONE (12:07)
[2022-07-16] MEDS ORDERED: NITRO DRIP 25000 MCG/D5W 250 ML IV ONE (12:07)
[2022-07-16] MEDS ORDERED: HEParin 1000 UNIT/ML (10ML VIAL) FOR BOLUS ONE (12:07)
[2022-07-16] MEDS ORDERED: HEParin (CATH LAB) 1,000 ML IV ONE (12:07)
[2022-07-16] MEDS ORDERED: PATIENT MAY USE OWN MEDS, ALL PO SCH (13:45)
--- NOTE | 2022-07-16 14:00 | Cardiac Cath Report ---
CARDIAC CATHETERIZATION DATE OF PROCEDURE: July 16, 2022 INDICATION: Unstable angina. HISTORY: 56-year-old gentleman with a history of obstructive sleep apnea and CAD status post PCI to the LAD left circumflex and RCA who presents for evaluation of chest discomfort. Patient states that on June 25 he was smoking and began to experience chest discomfort radiating into the back and into the left upper extremity. That was the day he decided to stop smoking given the chest discomfort he experienced. He noted that the chest discomfort was very similar to what he is experienced in the past prior to receiving stents. He had to take nitroglycerin at that time. Since that time, his symptoms resolved but on the night prior to admission he awoke at approximately 4 AM with acute onset chest discomfort radiating to the back and into the shoulder. He denies any associated nausea vomiting or shortness of breath. He took a nitroglycerin tab which brought his symptoms down to a 2 out of 10 after consultation with his he decided to come in for evaluation. Initial troponins are negative. Here EKG demonstrates normal sinus rhythm first-degree AV block incomplete interventricular conduction delay Q waves in the inferior leads with T wave inversions inferiorly as well chest x-ray is negative for any acute intrathoracic process. Cardiology is now consulted for cardiac catheterization. PROCEDURES PERFORMED: 1. Right radial artery access 2. Selective coronary angiography from the right radial approach PROCEDURE DESCRIPTION: After informed consent and in the fasting state, the patient was taken to the [facility], transferred to the procedure table and prepped and draped in the usual sterile fashion. Lidocaine was administered over the right radial artery. We proceeded with selective coronary angiography using diagnostic JL3.5 (left coronary os) and R4(right coronary os) catheters. Left heart catheterization was performed using the JR4 diagnostic catheter. After, all equipment was removed. Radial band was applied. Hemostasis was achieved RESULTS: HEMODYNAMICS: Ao: 114/87/95 LV: 133/-/21 CORONARY ANGIOGRAPHY: Left main coronary artery: The left main coronary artery is short large size with minimal luminal irregularities. It bifurcates into the left circumflex and left anterior descending territories Left anterior descending coronary artery: The LAD is a moderate to large size vessel with patent stents extending from the proximal to the midportion. There is a 70 to 80% in-stent restenotic lesion in the very proximal portion of the proximal LAD stent. Mild in-stent restenosis is noted throughout the proximal and mid LAD stent course. There is a 50% lesion in the mid LAD and there is a 60 to 70% lesion in the mid to distal LAD. The LAD gives rise to 2 diagonal vessels. D1 is small with minimal luminal irregularities. D2 is a small to mod erate-sized vessel with mild-moderate diffuse disease Left circumflex coronary artery: The left circumflex is a moderate to large size vessel with patent pre-existing stents in the mid segment of the vessel. There is a 95% in-stent restenotic lesion within the mid left circumflex stent. The Left circumflex then gives rise to an obtuse marginal and and LPL vessel. OM1 is a large sized vessel with minimal luminal irregularities. LPL 1 is a small to moderate size vessel with minimal luminal irregularities Right coronary artery: The right coronary artery is a large sized vessel that bifurcates into an RPDA and RPL system. There are patent stents noted from the proximal to the distal portion of the RCA. There is 60% in-stent restenosis within the mid section of the mid RCA stents. Also, there is a 50 lesion in the distal RCA stents. The RPDA is a small to moderate size vessel with a 50-60% lesion in the midsegment. The RPL is a moderate size vessel with minimal luminal irregularities. IMPRESSION: 1. Severe multivessel CAD 2. CAD s/p pre-existing PCI in RCA, LAD, and LCx territories 3. Moderately elevated left sided cardiac filling pressures (LVEDP ~ 21mmHg). RECOMMENDATION: 1. CT surgical evaluation 2. Med optimization (start home meds; metop, - half dose, lisiniopril, atorvastatin, tricor and imdur). 3. Cont heparin gtt. 4. If turned down, proceed with PCI of likely Culprit (95% in-stent restenotic lesion in the midLCx). JOHN ERAZO MD Jul 16, 2022 14:00
[2022-07-16] MEDS ORDERED: FENOFIBRATE, MICRO 67 MG (LOFIBRA) CAPSULE PO SCH (21:00)
[2022-07-16] MEDS ORDERED: meTOprolol TARTRATE 25 MG (LOPRESSOR) TABLET PO SCH (21:00)
[2022-07-17] MEDS ORDERED: ISOSORBIDE MONONITRATE 30 MG (IMDUR) TAB PO SCH (09:00)
[2022-07-17] MEDS ORDERED: lisINopril 10 MG (PRINIVIL) TABLET PO SCH (09:00)
[2022-07-17] MEDS ORDERED: ASPIRIN E.C. 81 MG (ECOTRIN) TAB PO SCH (09:00)
== END 2022-07-16 21:05 | disposition other institution, planned readmission (95) ==
LOC: EDUNIT# 05:49 → ER 05:52 → ICU 08:26
PROVIDERS: ADMIT Family Medicine; ATTEND Family Medicine
DX: I25.110 Atherosclerotic heart disease of native coronary artery with unstable angina pectoris (principal); I10 Essential (primary) hypertension; R00.1 Bradycardia, unspecified; N17.9 Acute kidney failure, unspecified; R73.9 Hyperglycemia, unspecified; Z87.891 Personal history of nicotine dependence
CPT/HCPCS: 36415; 71045; 80053; 83036; 83735; 84484; 85025; 85610; 85730; 93005; 93041; 93306; 93458; 96361

== ENCOUNTER → 2022-09-23 | Outpatient (RCR) | payer BC | END | disposition home or self-care (01) | LOC: CR 08-31 07:50 | PROVIDERS: ATTEND Internal Medicine Cardiovascular Disease | DX: Z29.8 Encounter for other specified prophylactic measures (principal) | CPT/HCPCS: 93798 ==

== ENCOUNTER 2022-10-07 09:27 | Outpatient (RCR) | payer BC | END 2022-10-24 | disposition home or self-care (01) | LOC: CR 09:27 | PROVIDERS: ATTEND Internal Medicine Cardiovascular Disease | DX: Z29.8 Encounter for other specified prophylactic measures (principal); Z95.1 Presence of aortocoronary bypass graft | CPT/HCPCS: 93798 ==